=== PATIENT | male | born 1955 | race Caucasian/White ===

== ENCOUNTER 2018-12-30 10:02 | Inpatient (IN) | payer MEDICARE, OTHER ==
[~2018-12-30] VITALS: Ht 170.2 cm; Wt 69.4 kg
[~2018-12-30 10:02] MED LIST: NONE PER PT
[2018-12-30] MEDS ORDERED: FURO20TA3 PO ×2 (10:14)
[2018-12-30] MEDS ORDERED: LACT10SO28 PO (10:14)
[2018-12-30] MEDS ORDERED: ONDA4TAB12 PO (10:14)
[2018-12-30] MEDS ORDERED: SPIR50TA4 PO (10:14)
[2018-12-30] MEDS ORDERED: OMEP20TA62 PO (10:14)
--- NOTE | 2018-12-30 10:14 | NUR ---
PT BIB [facility] FROM [facility] FOR N/V AND GENERALIZED ABD PAIN AND SWELLING. 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 PT STATES HE WAS GIVEN APPROX 6 MONTHS TO LIVE IN JULY 2018. PT STATES HE WAS ON HOSPICE FOR 1 MONTH, BUT CHOSE TO REVOKE HOSPICE AND BECOME A FULL CODE. PT WAS RECENTLY ADMITTED FOR GI BLEED AT [facility]. GASTRIC AND ESOPHAGEAL BANDING WAS COMPLETED. PT DENIES BLOOD IN VOMIT OR STOOL. PT WAS GIVEN 4MG IM ZOFRAN PRIOR TO LEAVING THE [facility]. 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 PER EMS, PT WAS HYPOXIC AT 88% ON RA. 2L NC PLACED AND REMAIN ON NOW. VSS NOW ON 2L NC. Addendum: 12/30/18 at [email or web address] PHILLIP TO [facility] ASSESSMENT. AWAITING ORDERS.
[2018-12-30] MEDS ORDERED: SODIUM CHLORIDE 0.9% 1,000 ML IV ONE (10:22)
[2018-12-30] MEDS ORDERED: SODIUM CHLORIDE FLUSH 10ML SYR IVF ONE (10:30)
--- NOTE | 2018-12-30 10:47 | NUR ---
pt back from xr at this time. labs drawn and sent. pt tolerated well. vss. awaiting results.
[2018-12-30 10:52] LABS: BASOPHILS # (AUTO) 0.03 x10^3/uL (0-0.1); BASOPHILS % (AUTO) 0 % (0-1); EOSINOPHILS # (AUTO) 0.18 x10^3/uL (0-0.4); EOSINOPHILS % (AUTO) 3 % (1-7); LYMPHOCYTES # (AUTO) 0.59 x10^3/uL (1-3.4); LYMPHOCYTES % (AUTO) 8 % (22-44); MD NO; MEAN CORPUSCULAR HEMOGLOBIN 31.1 pg (27.5-34.5); MEAN CORPUSCULAR HGB CONC 32.7 g/dL (33.2-36.2); MEAN CORPUSCULAR VOLUME 95.2 fL (81-97); MEAN PLATELET VOLUME 6.8 fL (7.4-10.4); MONOCYTES # (AUTO) 0.61 x10^3/uL (0.2-0.8); MONOCYTES % (AUTO) 8 % (2-9); NEUTROPHILS # (AUTO) 5.93 x10^3/uL (1.8-6.8); NEUTROPHILS % (AUTO) 81 % (42-75); PLATELET COUNT 253 x10^3/uL (130-400); RED CELL DISTRIBUTION WIDTH 16.5 % (9.4-14.8)
[2018-12-30 11:07] LABS: ALANINE AMINOTRANSFERASE 94 U/L (12-78); ALBUMIN 2.4 g/dL (3.4-5.0); ANION GAP 6 mmol/L (5-15); CALCIUM 7.9 mg/dL (8.5-10.1); CHLORIDE 109 mmol/L (98-107); CREATININE 0.97 mg/dL (0.7-1.3)
--- NOTE | 2018-12-30 11:08 | NUR ---
pt resting in room with kai at bs. lights dimmed and warm blanket provided for comfort. vss. no needs expressed. awaiting results.
[2018-12-30 11:10] LABS: ALKALINE PHOSPHATASE 176 U/L (45-117)
--- NOTE | 2018-12-30 11:15 | NUR ---
US TO BS.
[2018-12-30 11:16] LABS: ACETONE, SERUM Negative (Negative)
[2018-12-30] MEDS ORDERED: LACTULOSE 10 GM/15 ML UDC PO ONE (11:30)
--- NOTE | 2018-12-30 12:00 | NUR ---
pt resting in room with kai at bs. vss. no needs expressed. us remains at bs. awaiting results.
--- NOTE | 2018-12-30 12:15 | NUR ---
pt icated per aug. vss. report to brianna nunez. pt ready for transport.
[2018-12-30 13:26] LABS: MICROSCOPIC NOT IND
[2018-12-30 13:28] LABS: CULTURE INDICATED? NO
[2018-12-30 14:06] LABS: INTERNATIONAL NORMALIZED RATIO 1.03 (0.93-1.1); PROTHROMBIN TIME 10.8 Seconds (9.6-11.5)
[2018-12-30 14:32] VITALS: BP 100/62
[2018-12-30] MEDS ORDERED: LIDODERM 5% PATCH TD PRN (15:30)
[2018-12-30] MEDS ORDERED: morphine SULFATE 10 MG/ML, 1ML IVPush PRN (15:30)
[2018-12-30] MEDS ORDERED: ONDANSETRON 4 MG TABLET PO PRN (15:30)
[2018-12-30] MEDS ORDERED: IBUPROFEN 600 MG TABLET PO PRN (15:30)
[2018-12-30] MEDS ORDERED: ONDANSETRON 2MG/ML, 2ML IVPush PRN (15:30)
[2018-12-30] MEDS: LACTULOSE 20 GM/30 ML UDC PO SCH ×2 (16:02→21:17)
[2018-12-30] MEDS: ENOXAPARIN 40 MG/0.4 ML SQ SCH (16:02)
[2018-12-30] MEDS: OXYcodone IR 5MG TABLET PO PRN ×3 (16:06→21:25)
[2018-12-30 16:47] LABS: TROPONIN I < 0.015 ng/mL (0.000-0.045)
[2018-12-30 19:11] VITALS: BP 114/72
[2018-12-30] MEDS: FAMOTIDINE 20 MG/2 ML IVPush SCH (21:17)
[2018-12-30] MEDS: FUROSEMIDE 20 MG TABLET PO SCH (21:17)
[2018-12-30] MEDS: OMEPRAZOLE 20 MG CAPSULE.DR PO SCH (21:17)
[2018-12-30] MEDS: SPIRONOLACTONE 50 MG TABLET PO SCH (21:17)
[2018-12-30 21:46] LABS: TROPONIN I < 0.015 ng/mL (0.000-0.045)
[2018-12-31 01:03] VITALS: BP 106/71
[2018-12-31] MEDS: OXYcodone IR 5MG TABLET PO PRN ×4 (04:08→21:37)
[2018-12-31 04:19] LABS: BASOPHILS # (AUTO) 0.02 x10^3/uL (0-0.1); BASOPHILS % (AUTO) 0 % (0-1); EOSINOPHILS # (AUTO) 0.25 x10^3/uL (0-0.4); EOSINOPHILS % (AUTO) 4 % (1-7); LYMPHOCYTES # (AUTO) 0.74 x10^3/uL (1-3.4); LYMPHOCYTES % (AUTO) 11 % (22-44); MD NO; MEAN CORPUSCULAR HEMOGLOBIN 32.3 pg (27.5-34.5); MEAN CORPUSCULAR HGB CONC 33.1 g/dL (33.2-36.2); MEAN CORPUSCULAR VOLUME 97.6 fL (81-97); MEAN PLATELET VOLUME 6.7 fL (7.4-10.4); MONOCYTES # (AUTO) 0.86 x10^3/uL (0.2-0.8); MONOCYTES % (AUTO) 13 % (2-9); NEUTROPHILS # (AUTO) 4.98 x10^3/uL (1.8-6.8); NEUTROPHILS % (AUTO) 73 % (42-75); PLATELET COUNT 266 x10^3/uL (130-400); RED BLOOD COUNT 3.13 x10^6/uL (4.38-5.82); RED CELL DISTRIBUTION WIDTH 16.5 % (9.4-14.8)
[2018-12-31 04:29] LABS: ALANINE AMINOTRANSFERASE 95 U/L (12-78); ALBUMIN 2.4 g/dL (3.4-5.0); ANION GAP 8 mmol/L (5-15); CALCIUM 8.1 mg/dL (8.5-10.1); CHLORIDE 106 mmol/L (98-107); CREATININE 0.89 mg/dL (0.7-1.3)
[2018-12-31 04:39] LABS: ALKALINE PHOSPHATASE 152 U/L (45-117); BILIRUBIN,TOTAL 1.3 mg/dL (0.2-1.0); TOTAL PROTEIN 6.7 g/dL (6.4-8.2)
[2018-12-31] MEDS: LACTULOSE 20 GM/30 ML UDC PO SCH ×4 (06:39→21:37)
[2018-12-31 07:24] VITALS: BP 110/71
[2018-12-31] MEDS: SPIRONOLACTONE 50 MG TABLET PO SCH ×2 (09:35→21:37)
[2018-12-31] MEDS: OMEPRAZOLE 20 MG CAPSULE.DR PO SCH ×2 (09:35→21:37)
[2018-12-31] MEDS: FAMOTIDINE 20 MG/2 ML IVPush SCH ×2 (09:35→21:37)
[2018-12-31] MEDS: FUROSEMIDE 40 MG TABLET PO SCH (09:35)
[2018-12-31 12:15] VITALS: BP 112/71
[2018-12-31] MEDS: ENOXAPARIN 40 MG/0.4 ML SQ SCH (16:03)
[2018-12-31 17:40] LABS: % IRON SATURATION 27 % (20-55); IRON LEVEL 79 mcg/dL (65-175); TOTAL IRON BINDING CAPACITY 294 mcg/dL (250-450)
[2018-12-31] MEDS ORDERED: OMNIPAQUE 350 MG/ML, 100ML BOTTLE ONE (18:46)
[2018-12-31 18:55] VITALS: BP 104/69
[2018-12-31] MEDS: FUROSEMIDE 20 MG TABLET PO SCH (21:38)
[2019-01-01] MEDS: OXYcodone IR 5MG TABLET PO PRN ×5 (02:47→20:14)
[2019-01-01 03:33] VITALS: BP 113/72
[2019-01-01 05:18] LABS: BASOPHILS # (AUTO) 0.03 x10^3/uL (0-0.1); BASOPHILS % (AUTO) 1 % (0-1); EOSINOPHILS # (AUTO) 0.24 x10^3/uL (0-0.4); EOSINOPHILS % (AUTO) 5 % (1-7); LYMPHOCYTES # (AUTO) 0.64 x10^3/uL (1-3.4); LYMPHOCYTES % (AUTO) 12 % (22-44); MD NO; MEAN CORPUSCULAR HEMOGLOBIN 32.8 pg (27.5-34.5); MEAN CORPUSCULAR HGB CONC 33.7 g/dL (33.2-36.2); MEAN CORPUSCULAR VOLUME 97.2 fL (81-97); MEAN PLATELET VOLUME 7.1 fL (7.4-10.4); MONOCYTES # (AUTO) 0.64 x10^3/uL (0.2-0.8); MONOCYTES % (AUTO) 12 % (2-9); NEUTROPHILS # (AUTO) 3.89 x10^3/uL (1.8-6.8); NEUTROPHILS % (AUTO) 71 % (42-75); PLATELET COUNT 234 x10^3/uL (130-400); RED BLOOD COUNT 3.04 x10^6/uL (4.38-5.82); RED CELL DISTRIBUTION WIDTH 16.2 % (9.4-14.8)
[2019-01-01 05:26] LABS: ALBUMIN 2.4 g/dL (3.4-5.0); ANION GAP 6 mmol/L (5-15); CALCIUM 8.2 mg/dL (8.5-10.1); CHLORIDE 100 mmol/L (98-107)
[2019-01-01 05:31] LABS: ALANINE AMINOTRANSFERASE 97 U/L (12-78); ALKALINE PHOSPHATASE 147 U/L (45-117); CREATININE 0.78 mg/dL (0.7-1.3); TOTAL PROTEIN 6.8 g/dL (6.4-8.2)
[2019-01-01] MEDS: LACTULOSE 20 GM/30 ML UDC PO SCH ×4 (05:52→20:14)
[2019-01-01 07:55] VITALS: BP 112/85
[2019-01-01] MEDS: OMEPRAZOLE 20 MG CAPSULE.DR PO SCH ×2 (09:22→20:15)
[2019-01-01] MEDS: FAMOTIDINE 20 MG/2 ML IVPush SCH ×2 (09:23→20:14)
[2019-01-01] MEDS: FUROSEMIDE 40 MG TABLET PO SCH (09:23)
[2019-01-01] MEDS: SPIRONOLACTONE 50 MG TABLET PO SCH ×2 (09:23→20:15)
[2019-01-01 12:15] VITALS: BP 117/74
[2019-01-01] MEDS: ENOXAPARIN 40 MG/0.4 ML SQ SCH (16:05)
[2019-01-01] MEDS ORDERED: ALBUTEROL SULFATE 2.5 MG/3 ML ONE (17:04)
[2019-01-01] MEDS: predniSONE 50MG TABLET PO SCH (17:22)
[2019-01-01] MEDS ORDERED: ALBUTEROL SULFATE 2.5 MG/3 ML NPPB PRN (17:30)
[2019-01-01 19:14] VITALS: BP 115/76
[2019-01-01] MEDS: FUROSEMIDE 20 MG TABLET PO SCH (20:15)
[2019-01-02] MEDS: OXYcodone IR 5MG TABLET PO PRN ×3 (00:53→09:45)
[2019-01-02 01:08] VITALS: BP 97/62
[2019-01-02 04:56] LABS: BASOPHILS # (AUTO) 0.02 x10^3/uL (0-0.1); BASOPHILS % (AUTO) 0 % (0-1); EOSINOPHILS % (AUTO) 0 % (1-7); LYMPHOCYTES # (AUTO) 0.33 x10^3/uL (1-3.4); LYMPHOCYTES % (AUTO) 6 % (22-44); MD NO; MEAN CORPUSCULAR HEMOGLOBIN 31.2 pg (27.5-34.5); MEAN CORPUSCULAR HGB CONC 32.6 g/dL (33.2-36.2); MEAN CORPUSCULAR VOLUME 95.6 fL (81-97); MONOCYTES % (AUTO) 6 % (2-9); NEUTROPHILS # (AUTO) 4.88 x10^3/uL (1.8-6.8); NEUTROPHILS % (AUTO) 88 % (42-75); PLATELET COUNT 246 x10^3/uL (130-400); RED BLOOD COUNT 3.26 x10^6/uL (4.38-5.82)
[2019-01-02 05:06] LABS: CHLORIDE 98 mmol/L (98-107)
[2019-01-02 05:13] LABS: ALANINE AMINOTRANSFERASE 107 U/L (12-78); ALBUMIN 2.8 g/dL (3.4-5.0); ALKALINE PHOSPHATASE 166 U/L (45-117); ANION GAP 8 mmol/L (5-15); BILIRUBIN,TOTAL 1.2 mg/dL (0.2-1.0); CALCIUM 8.7 mg/dL (8.5-10.1); CREATININE 0.96 mg/dL (0.7-1.3); TOTAL PROTEIN 7.7 g/dL (6.4-8.2)
[2019-01-02] MEDS: LACTULOSE 20 GM/30 ML UDC PO SCH ×2 (05:37→11:51)
[2019-01-02 08:01] VITALS: BP 107/73
[2019-01-02] MEDS: predniSONE 50MG TABLET PO SCH (09:06)
[2019-01-02] MEDS: SPIRONOLACTONE 50 MG TABLET PO SCH (09:06)
[2019-01-02] MEDS: FUROSEMIDE 40 MG TABLET PO SCH (09:06)
[2019-01-02] MEDS: FAMOTIDINE 20 MG/2 ML IVPush SCH (09:06)
[2019-01-02] MEDS: OMEPRAZOLE 20 MG CAPSULE.DR PO SCH (09:06)
[2019-01-02] MEDS ORDERED: FLUT1AER INH (11:50)
[2019-01-02] MEDS ORDERED: LACT10SO28 PO (11:50)
[2019-01-02] MEDS ORDERED: ALBU8.5H8 INH (11:50)
[2019-01-02] MEDS ORDERED: PRED50TA PO (12:02)
== END 2019-01-02 13:46 | disposition home or self-care (01) | DRG 441 ==
LOC: ED 11:46 → EDIP 12:18 → 3NW 12:25
PROVIDERS: ADMIT Internal Medicine; ATTEND Internal Medicine
DX: K72.90 Hepatic failure, unspecified without coma (principal); J96.21 Acute and chronic respiratory failure with hypoxia; J96.01 Acute respiratory failure with hypoxia; J44.1 Chronic obstructive pulmonary disease with (acute) exacerbation; J98.11 Atelectasis; B19.20 Unspecified viral hepatitis C without hepatic coma; D50.9 Iron deficiency anemia, unspecified; Z66 Do not resuscitate; D63.8 Anemia in other chronic diseases classified elsewhere; E86.0 Dehydration; K59.00 Constipation, unspecified; K74.60 Unspecified cirrhosis of liver; Z85.05 Personal history of malignant neoplasm of liver; Z99.81 Dependence on supplemental oxygen; Z80.1 Family history of malignant neoplasm of trachea, bronchus and lung; Z72.0 Tobacco use
CPT/HCPCS: 36415; 71045; 74021; 74160; 76700; 80053; 81003; 82010; 82140; 83540; 83550; 83605; 83690; 83735; 84100; 84443; 84484; 85025; 85610; 93005; 94640; 96360; 96361; G0378; J1650; J7613; Q9967; J3490; J7030; J7512